=== PATIENT | female | born 1975 | race Caucasian/White ===

== ENCOUNTER 2023-02-23 11:27 | Outpatient (CLI) | payer OTHER, SELFPAY ==
--- NOTE | ~2023-02-23 | XR_ITS ---
EXAMINATION: XR thoracic spine 3V DATE: 02/23/2023 12:05 INDICATION: Thoracic spine pain TECHNIQUE: AP, lateral and lateral swimmer's views of the thoracic spine were obtained. COMPARISON: None. FINDINGS: Bone alignment is normal. There is an age-indeterminate compression fracture of T12 with 30 % loss of vertebral body height. The thoracic vertebral body heights are otherwise maintained. There is mild loss of intervertebral space height at multiple levels in the thoracic spine. Small degenerat soto osteophytes project from the anterior endplates of multiple vertebral bodies. Calcified pulmonary nodules and calcified bilateral hilar and subcarinal lymph nodes are consistent with old granulomato us disease. IMPRESSION: 1. Age indeterminate compression fracture of T12 with 30% loss of vertebral body height. Mild thoraci c spondylosis. Reviewed, dictated and finalized at location A. IMPRESSION: 1. Age indeterminate compression fracture of T12 with 30% loss of vertebral bod y height. Mild thoracic spondylosis.
--- NOTE | ~2023-02-23 | XR_ITS ---
EXAMINATION: XR lumbar spine 6V w bending DATE: 02/23/2023 12:05 INDICATION: Dorsalgia, unspecified. TECHNIQUE: 7 views of lumbar spine including flexion and extension views were obtained. COMPARISON: None. FINDINGS: The spine is hypomobile with flexion and extension. Bone alignment is normal. There is mild chronic anterior wedging of T12 and L1 vertebral bodies. There is moderately decreased disc height a t T11-T12 and L5-S1. There are endplate osteophytes at most levels. There is multilevel facet joint o steoarthritis, severe bilaterally at L5-S1. IMPRESSION: 1. Moderate lumbar spondylosis. Reviewed, dictated and finalized at location A.
== END 2023-02-23 11:28 | disposition home or self-care (01) ==
PROVIDERS: PCP Student in an Organized Health Care Education/Training Program; Visit Provider Anesthesiology Pain Medicine
DX: M54.6 Pain in thoracic spine (principal); S22.081A Stable burst fracture of T11-T12 vertebra, initial encounter for closed fracture; X58.XXXA Exposure to other specified factors, initial encounter; M47.896 Other spondylosis, lumbar region
CPT/HCPCS: 72072; 72114